=== PATIENT | female | born 1950 | race Caucasian/White ===

== ENCOUNTER → 2016-06-20 | Outpatient (CLI) | payer MEDICARE, OTHER ==
[~2016-06-20] MED LIST: ALEVE; BYSTOLIC5 MG PO; CALCIUM + D 6001 TA1 PO; EYE VITAMIN PO; KCL PO; MULTI-DAY1 TAB PO; SYNTHROID0.05 MG PO
--- NOTE | ~2016-06-20 | MY11 ---
[facility] A Service of [facility] RADIOLOGY TEXT RESULTS PATIENT: KYLAH TRAN LOCATION: [facility] : 48 UNIT #: [id number] AGE: [address]: Colten Saul MD SEX: F ORDER DR: [id number] [place] [id number] O MR#: [id number] Acc #: [id number] NAME: KYLAH TRAN : 1950 SEX: F STUDY DATE/TIME: 06/20/2016 8:55 UNIT: [facility] ROOM: STUDY DESCRIPTION: MY Mammogram Screening Dig Migel Attending Physician: Colten Saul M.D. Referring Physician: Colten Saul M.D. Ordering Physician: Colten Saul M.D. Primary Care Physician: Colten Saul M.D. MEDICAL IMAGING REPORT This report is preliminary unless electronic signature is present. EXAM Bilateral digital screening mammogram with CAD 06/20/2016 INDICATIONS 66-year-old female for routine screening. No reported problems and no personal history of breast cancer. Family history positive in a maternal grandmother. History of benign breast lesions bilaterally. TECHNIQUE CC and MLO views were obtained and reviewed with a FDA approved CAD device. COMPARISON 06/19/2015 06/16/2014 06/14/2013 FINDINGS Breast parenchyma is heterogeneously dense. This degrades sensitivity of screening mammography. Pattern is unchanged. Scar marker present on the left. Biopsy clip also present on the left. There is no new dominant nodule, mass or suspicious cluster of microcalcifications. There are benign calcifications present. IMPRESSION Benign screening mammogram. One year follow up recommended. Patients over the age of 40 are entered into a reminder system with target due date for the next mammogram. A result letter will also be sent to the patient. BIRADS: 2 Benign finding. Dictated by... Mychal Quintana M.D. THIS IS AN ELECTRONICALLY VERIFIED REPORT [facility] A Service of [facility] RADIOLOGY TEXT RESULTS PATIENT: KYLAH TRAN [facility] #: [id number] : 48 UNIT #: [id number] AGE: [address]: Colten Saul MD SEX: F ORDER DR: Mychal Quintana M.D. at 06/20/2016 3:39 PM Josefina TD: 06/20/2016 12:02 JOB #: [id number] MEDICAL IMAGING REPORT
== END | disposition home or self-care (01) ==
LOC: SMAM 08:06
DX: Z12.31 Encounter for screening mammogram for malignant neoplasm of breast (principal); Z80.3 Family history of malignant neoplasm of breast
CPT/HCPCS: G0202